=== PATIENT | male | born 1960 | race Caucasian/White ===

== ENCOUNTER → 2022-01-22 10:51 | Outpatient (CLI) | payer OTHER, SELFPAY ==
--- NOTE | ~2022-01-22 | US_ITS ---
US scrotum doppler, US soft tissue groin RT DATE: 01/22/2022 11:42 INDICATION: Scrotal swelling TECHNIQUE: Real-time and color flow imaging and Doppler analysis of the scrotal contents COMPARISON: None FINDINGS: There is bowel within the right inguinal canal, best demonstrated on Valsalva maneuver. There is a huge septated right hydrocele. There are cysts at the superior aspect of the left epididymis, the largest measuring up to 2.8 x 3.1 cm. There is homogeneous and symmetric echotexture of the testicles. No testicular mass lesion or torsion is detected. No varicocele is evident. IMPRESSION: Bowel containing right inguinal hernia Huge septated right hydrocele Prominent cysts at the superior aspect of the epididymis, largest measuring up to 3.1 x 2.8 cm No testicular mass lesion or torsion Reviewed, dictated and finalized at [facility]. Reviewed, dictated and finalized at location [facility]. IMPRESSION: Bowel containing right inguinal hernia Huge septated right hydrocele Prominent cysts at the superior aspect of the epididymis, largest measuring up to 3.1 x 2.8 cm No testicular mass lesion or torsion
== END ==
PROVIDERS: PCP Surgery; Visit Provider Surgery
DX: K40.90 Unilateral inguinal hernia, without obstruction or gangrene, not specified as recurrent (principal); N50.89 Other specified disorders of the male genital organs; N43.3 Hydrocele, unspecified; N50.3 Cyst of epididymis; Z51.81 Encounter for therapeutic drug level monitoring; Z79.899 Other long term (current) drug therapy
CPT/HCPCS: 76870; 76882; 93976

== ENCOUNTER 2022-06-11 00:19 | Day surgery (SDC) | payer OTHER, SELFPAY ==
[2022-06-03 10:01] VITALS: BMI 27.5
--- NOTE | 2022-06-03 10:33 | PC.NURSE ---
Addendum entered by Tori Mtz RN 06/04/22 12:51: left pt VM instructing him to only take Amlodipine am of surgery, and not to take Aspirin morning of surgery. Requested he call back with any questions. Original Note: Report to the Outpatient Waiting Room, entrance under the green pavilion located off [facility], at time _1000 on date 06/11/22. Planned Procedure Time: _1200_. Time changes happen often and if your time is changed the preop area will call you the afternoon before. - You and your visitor will be asked to self-screen and do not enter if you have any COVID symptoms. - We encourage only one visitor and NO visitors under age 16 are allowed at this time. Your visitor will receive communication by the phone number that is given day of service. - The patient visitor is requested to social distance or may leave the building when not with patient due to restrictions. - A mask is required within the hospital. Patients may have clear liquids (water, carbonated beverages, clear teas, apple juice) until 3 hours prior to surgery with a maximum of 20 ounces. - No food from midnight until time of surgery - Infants may have breast milk until 4 hours before surgery, infant formula 6 hours prior to surgery. - Children will be allowed to drink immediately following surgery. If applicable, please bring a bottle or sippy cup to assist with drinking. Juice, water, soda, and popsicles are readily available. For infants on formula, please bring formula the day of surgery. Pacifiers are allowed. Take the following medications with a SIP of water the morning of surgery: _Amlodipine, aspirin_ Medications to discontinue per physician Date to take last dose Please no make-up, nail omani, hairspray, perfume, deodorant, or body powder the day of surgery. No jewelry (including any body piercings) or valuables the day of surgery, leave them at home. Please take a shower or bath the night before, or the morning of, surgery with an antibacterial soap. Wear comfortable, loose fitting clothing. Children are encouraged to wear pajamas. - Jewelry must be removed prior to entering the operating room. Rings and piercings that are not removed may be cut off. - The hospital will not accept responsibility for valuables. - Please leave all valuables, including medications, at home the day of surgery. If you are going home after surgery, a licensed fuel oil truck driver must drive you home. - NO public transportation without another adult. - We recommend that an adult stay with you for 24 hours following discharge. - We also recommend that you do not drive, make important decision, drink alcoholic beverages, or take any drugs that were not prescribed by your health care provider for at least 24 hours after your discharge time. For Pediatric surgeries, we recommend two adults accompany the child home. Follow any additional instructions given to you from your surgeon. If you or anyone in your household have experienced Covid symptoms in the past week, please notify your surgeon or the nurse liaison at the phone number below for possible testing. Telephone instructions given to Brianne Mcdaniel and asked if any additional questions and then verbalized understanding. Patient advised to call surgeon office or pre surgery nurse liaison [phone] if any additional questions.
--- NOTE | 2022-06-04 07:04 | P.HP_ITS ---
History of Present Illness History of Present Illness Consent: Risks, benefits, and alternatives have been discussed and questions answered. Patient agrees to proceed with procedure. Chief complaint: right hydrocele, right Inguinal Hernia Narrative: Dylon Mcdaniel is a 61 year old male with a 7 year history of progressive swelling in his right hemiscrotum. Examination and ultrasonography revealed a small right inguinal hernia and large septated right hydrocelectomy. After discussion of options he has elected to proceed with a simultaneous hydrocelectomy and inguinal hernia repair per Dr. Ector Webb. He is aware the risk of the hydrocelectomy including, but not limited to, recurrent hydroceles, wound infection and scrotal hematoma. Review of Systems Cardiovascular: Cardiovascular: Denies chest pain, Denies lightheadedness, Denies palpitations and Denies dyspnea Respiratory: Respiratory: Denies dyspnea Gastrointestinal: Gastrointestinal: Denies diarrhea, Denies nausea and Denies vomiting Genitourinary: Genitourinary: Denies hematuria and Denies dysuria Endocrine: Endocrine: Denies palpitations [facility] Surgical History Surgical History No history of previous surgery Family History Family History Mother Cerebrovascular accident Social History Social History Smoking status: Never smoker Alcohol intake: never Substance use: never Substance use type: does not use 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 Spiritual care concerns: No Meds Home Medications and Allergies Home Medications Medication Instructions Recorded Confirmed Type amlodipine 10 mg tablet 10 mg PO DAILY 01/13/22 06/03/22 History aspirin 81 mg tablet,delayed 81 mg PO DAILY 01/13/22 06/03/22 History release (Adult Aspirin Regimen) hydralazine 50 mg tablet 50 mg PO TID 01/13/22 06/03/22 History losartan 100 mg tablet 100 mg PO DAILY 01/13/22 06/03/22 History fenofibrate 160 mg tablet 160 mg PO DAILY 01/15/22 06/03/22 History Allergies Allergy/AdvReac Type Severity Reaction Status Date / Time No Known Allergies Allergy Verified 02/02/22 11:35 Exam Const: General: no acute distress Resp: Effort & Inspection: normal respiratory effort GI: Inspection: non-distended GI Palp: No abdominal tenderness and No Guarding due to palpation present (GI) Auscultation: normal bowel sounds : Scrotum: Hydrocele present Assessment and Plan Assessment and plan (1) Right hydrocele: Code(s): N43.3 - Hydrocele, unspecified Status: Acute Assessment and Plan: * Right hydrocelectomy
--- NOTE | 2022-06-08 17:28 | PM.SD2 ---
Same Day Admit/Disch: HPI History of Present Illness Chief complaint: right hydrocele, right Inguinal Hernia Narrative: Dylon Mcdaniel is a 61 year old male Whom I initially saw back in December. He presented with a large right scrotal mass and evidence of an inguinal hernia. Initially it seemed that this was an inguinal scrotal hernia containing bowel. An ultrasound was performed January 22 which showed the patient to have an inguinal hernia containing bowel but also a very large multi septate right hydrocele. The patient has seen Dr. Matute and is taken to surgery at this time for hydrocelectomy as well as right inguinal hernia repair. Dr. Matute will perform the hydrocelectomy and then I will follow with right inguinal hernia repair. 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 Spiritual care concerns: No Same Day Admit/Disch: Med Pre-admit Medications Home Medications Medication Instructions Recorded Confirmed Type amlodipine 10 mg tablet 10 mg PO DAILY 01/13/22 06/11/22 History aspirin 81 mg tablet,delayed 81 mg PO DAILY 01/13/22 06/11/22 History release (Adult Aspirin Regimen) hydralazine 50 mg tablet 50 mg PO TID 01/13/22 06/11/22 History losartan 100 mg tablet 100 mg PO DAILY 01/13/22 06/11/22 History fenofibrate 160 mg tablet 160 mg PO DAILY 01/15/22 06/11/22 History hydrocodone 5 mg-acetaminophen 325 1 - 2 tablet PO Q6H PRN pain #15 06/11/22 Rx mg tablet tabs ketorolac 10 mg tablet 10 mg PO Q6H 4 days #16 tabs 06/11/22 Rx Exam Const: General: comfortable, no acute distress, alert and awake HENMT: Head: normocephalic and atraumatic Mouth: Yes Normal oral and palatal mucosa present Eyes: Conjunctivae: conjunctivae normal Pupils: Equal, round and reactive pupils present EOM: EOMs intact bilaterally Neck: Neck: normal visual inspection, no lymphadenopathy and nontender Resp: Effort & Inspection: normal respiratory effort Auscultation: clear to auscultation bilaterally Cardio: Rate: regular rate Rhythm: regular rhythm Heart sounds: no gallops, no murmurs and no rubs GI: Inspection: non-distended GI Palp: Yes Soft to palpation, No Tenderness to palpation present (GI), No Hepatomegaly present and No Splenomegaly present : Male General Exam: Yes hernia ( right groin bulge with large scrotal mass) Penis: Yes normal penis Scrotum: scrotal mass Skin: Lesions: no lesions Rashes: no rashes Neuro: General: no focal motor deficits and CN's II-XI intact bilaterally Cranial nerves: Yes Equal, round and reactive pupils present, Yes Bilaterally intact EOM present, Yes facial symmetry and Yes Midline tongue present Speech: normal speech Motor exam (neuro): 5/5 motor strength present throughout and Motor abnormalities not present Extrem: General: no clubbing, cyanosis or edema and edema Psych: Affect: normal affect Thought process: Normal thought process present Insight: Good insight present (Psych) DS: Summary Time Spent with Patient Time attestation: Total time spent providing and/or coordinating discharge services: DS: Admitting Diagnosis Discharge Date 06/11/2022 Admitting Diagnosis right inguinal hernia containing bowel-plan to proceed with right inguinal hernia repair under anesthesia. The procedure the risks the benefits have been discussed.
--- NOTE | 2022-06-10 13:07 | WPDANESEPPF ---
Anes - Initial Pre Proc Eval Procedure: Operation Date: 06/11/22 11:30 Proposed Procedures p Right Hydrocelectomy - Rene Matute MD s Right Inguinal Hernia Repair - Ector Webb MD Date/Time: 06/10/22 13:07 Surgeon: Rene Matute MD Pre Op Diagnosis: right hydrocele, right Inguinal Hernia Patient Data Age: 61 Gender: M Height: 1.91 m Weight: 100 kg Allergies Allergy/AdvReac Type Severity Reaction Status Date / Time No Known Allergies Allergy Verified 02/02/22 11:35 Home Medications Medication Instructions Recorded Confirmed Type amlodipine 10 mg tablet 10 mg PO DAILY 01/13/22 06/03/22 History aspirin 81 mg tablet,delayed 81 mg PO DAILY 01/13/22 06/03/22 History release (Adult Aspirin Regimen) hydralazine 50 mg tablet 50 mg PO TID 01/13/22 06/03/22 History losartan 100 mg tablet 100 mg PO DAILY 01/13/22 06/03/22 History fenofibrate 160 mg tablet 160 mg PO DAILY 01/15/22 06/03/22 History Patient hx anesthesia problems: none Family hx anesthesia problems: none Results Review: All pre-operative results and documents have been reviewed as part of the pre-operative evaluation. 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 Informed Consent: The patient's anesthetic plan and its attendant risks and benefits were discussed with the patient/family/POA. Questions were solicited and answers provided to the satisfaction of the patient/family/POA.
[2022-06-11] VITALS (9 sets, daily range): BP systolic 118–171; BP diastolic 50–74; PULSE 60–75; RESP 12–18; TEMP 36.2–36.6; O2SAT 96–100
--- NOTE | 2022-06-11 10:20 | ECG_ITS ---
Measurements Intervals [place] Rate: 67 P: 44 MD: 145 QRS: -5 QRSD: 106 T: -4 QT: 400 QTc: 423 Interpretive Statements SINUS RHYTHM VOLTAGE CRITERIA FOR LVH BORDERLINE T WAVE ABNORMALITY- INFERIOR LEADS BORDERLINE ECG NO PREVIOUS ECG AVAILABLE FOR COMPARISON Electronically Signed On 06-11-2022 10:32:40 JUNIOR ACCOUNT MANAGER by Narendra Clancy D.O.
--- NOTE | 2022-06-11 10:33 | WPDHPUPDATE1 ---
History and Physical Update Update Date/Time: 06/11/22 10:33 History and Physical has been reviewed, including an updated exam of the patient. There are NO changes in the patient's condition. Risks, benefits, and alternatives have been discussed and questions answered. Patient agrees to proceed with procedure.
[2022-06-11] MEDS: LACTATED RINGERS 1,000 ML 30 ML IV CONT ×2 (10:41→14:50)
[2022-06-11] MEDS: KETOROLAC 15 MG/ML VIAL (*BKC) IV PUSH (10:41)
[2022-06-11] MEDS: ACETAMINOPHEN 500 MG TABLET 1000 MG PO (10:41)
--- NOTE | 2022-06-11 12:05 | WPDHPUPDATE1 ---
History and Physical Update Update Date/Time: 06/11/22 12:05 History and Physical has been reviewed, including an updated exam of the patient. There are NO changes in the patient's condition. Risks, benefits, and alternatives have been discussed and questions answered. Patient agrees to proceed with procedure.
[2022-06-11] MEDS: ceFAZolin 2 GM/D5W 50 ML 2 GM/50 ML BAG IVPB (12:11)
[2022-06-11] MEDS: LIDOCAINE HCL 1% PF 30 ML VIAL 10 ML INFILTRATE (12:40)
[2022-06-11] MEDS: NEOMYCIN/POLYMYXIN/BACITRACIN OINTMENT 15 GM TUBE 1 APPLIC TOPICAL (12:56)
--- NOTE | 2022-06-11 12:56 | P.OP_ITS ---
Procedure Note - Detailed Date of Procedure 06/11/22 Pre-op Diagnosis Right hydrocele, right Inguinal Hernia Post-op Diagnosis Other (Right hydrocele, right spermatocele) Procedure Performed right hydrocelectomy and right spermatocelectomy Surgeon Rene Matute MD Anesthesia General Description of Procedure The patient was brought to the operative suite where he was prepped and draped in routine sterile fashion while in a supine position after the uneventful induction of a general LMA anesthetic. An incision was made in the median raphe of the scrotum and dissection was carried into the right tunica vaginalis. Approximatley 1L of clear, straw-colored fluid was drained. The testicle was examined and found to have a moderate size right spermatocele. I excised the spermatocele sac and sent as a specimen for pathological evaluation. The tunica was everted in a bottle-neck fashion using a running 4-0 chromic. The testicle was restored returned to an orthotopic positioned and pexed with triangulated 4- 0 Prolene The dartos muscle was closed with a running 4-0 chromic and the skin was likewise closed with a running 4-0 chromic. Estimated blood loss throughout this procedure was 10cc . Patient tolerated the procedure well and Dr. Webb was available for the inguinal hernia repair. Estimated Blood Loss 10 Drains No Packing No Pathology Yes
[2022-06-11] MEDS: BUPIVACAINE HCL 0.5% PF 30 ML VIAL INFILTRATE (13:46)
--- NOTE | 2022-06-11 14:45 | W.PM.PROC2 ---
Procedure Note - Detailed Date of Procedure 06/11/22 Pre-op Diagnosis Right inguinal hernia Post-op Diagnosis Same Procedure Performed Repair right inguinal hernia with extra-large PerFix Light plug and patch Surgeon Ector Webb MD Procurement Manager Latosha GRACIA Anesthesia General (LMA) and Local (0.5% Marcaine) Indications Patient presented with a large bulge in the right groin as well as a large scrotal mass. Ultrasound showed him to have a right inguinal hernia that had some bowel in the hernia. He also had a multiloculated large hydrocele. He is taken to surgery now for hydrocelectomy per Dr. Matute followed by right inguinal hernia repair by Dr. Webb. Dr. Matute will dictate the hydrocelectomy in a separate dictation. This is the dictation of the right inguinal hernia repair. Findings Large direct right inguinal hernia that took up the entire direct space and even some of the indirect space. Description of Procedure Patient was taken this surgery and anesthesia was introduced. Dr. Matute proceeded with the hydrocelectomy. At the conclusion of that procedure the right groin and genitalia were prepped and draped. The proposed incision in the right inguinal region was marked on the skin. Local was infiltrated into the skin and the deeper subcutaneous tissues. Incision was made and dissection was carried down through the subcutaneous. Crossing veins were cauterized and divided. We continued our dissection down to the external oblique aponeurosis. The aponeurosis was exposed as was the external ring. He could see a very large hernia bulging through the external ring. The aponeurosis was opened laterally and extended medially through the external ring. We dissected the leaves of the aponeurosis free from the underlying inguinal canal contents. The ilioinguinal nerve was left attached to the cord and was preserved during the surgery. I then dissected the hernia sac which was quite large in easily evident free from the spermatic cord. It was dissected out completely and extended from nearly the pubic tubercle back to the internal ring. Once it was dissected completely, I then used the cautery to divide the transversalis fascia just above the neck of the hernia circumferentially around the hernia defect. Even though it included the indirect space, the hernia was primarily a direct defect. The hernia was then dunked into the retroperitoneum. An extra-large PerFix plug was placed in the defect. I sutured the edges of the plug to the transversalis fascia with interrupted 3-0 Vicryl suture. Even after this was performed, of the plug was nearly bulging out of the defect. I then used 0 Ethibond suture and closed the transversalis fascia over the mesh and included the mesh with each bite of this suture. This provided a sturdy repair of the inguinal canal floor. I then cut the patch to the appropriate size. It was placed over the inguinal canal floor. The lateral leaves passed beyond the cord. I then put the 1st piece of Xaracoll over the patch. The spermatic cord and ilioinguinal nerve were laid over the Xaracoll. We then closed the external oblique aponeurosis with interrupted 3-0 Vicryl suture. The 2nd piece of Xaracoll was placed over the external oblique. Gerald's fascia was then closed with interrupted 3-0 Vicryl suture. The last piece of Xaracoll was placed in the subcutaneous. I then closed the skin with subcuticular interrupted 4-0 Vicryl skin suture. Wound was dressed with Exofin surgical adhesive. The patient was then awakened and taken to recovery in good condition. Sponge and needle counts were correct x2. Estimated Blood Loss -5 Drains No Packing No Pathology None sent Complications No immediate complications Condition Stable Disposition PACU [facility] Billing Surgery - Charge Forward: Surgery Billing (Right inguinal hernia repair with mesh)
== END 2022-06-11 16:35 | disposition home or self-care (01) ==
PROVIDERS: Surgery; Visit Provider Urology
PROC: (CPT 55040; principal; 2022-06-11 11:30)
PROC: (CPT 49505; 2022-06-11 11:30)
DX: N43.3 Hydrocele, unspecified (principal); N43.41 Spermatocele of epididymis, single; K40.90 Unilateral inguinal hernia, without obstruction or gangrene, not specified as recurrent; I10 Essential (primary) hypertension; E78.5 Hyperlipidemia, unspecified; Z79.82 Long term (current) use of aspirin
CPT/HCPCS: 55060; 54840; 49505; 88304; 93005; A9270; C1781; J0690; J1100; J1170; J1885; J2250; J2405; J2704; J3010; J7120